=== PATIENT | female | born 1960 | race Caucasian/White ===

== ENCOUNTER 2019-10-04 02:45 | Emergency (ER) | payer OTHER, SELFPAY ==
[2019-10-04] VITALS (7 sets, daily range): BP systolic 112–142; BP diastolic 60–83; PULSE 60–66; RESP 16–33; TEMP 36.1; O2SAT 96–99
--- NOTE | 2019-10-04 02:50 | ED.GENADULT ---
HPI - General Adult General Chief complaint: Syncope Stated complaint: Syncope Time Seen by Provider: 10/04/19 02:48 Source: patient and EMS Mode of arrival: EMS Limitations: no limitations History of Present Illness HPI narrative: Patient is a 59-year-old female. No reported prior medical history. Here for evaluation of chest discomfort and a syncopal episode. Patient states that last evening at approximately 1030 after she laid down to go to bed she developed left-sided chest pressure. She states that it was not painful but she was fairly uncomfortable and could not sleep. She states she got up several times to go use the restroom and walked around the boat that [place] was [place] without any relief of the discomfort. States she woke her . They were having discussions about whether not to return home because of the discomfort. She states that she felt like she had to use the restroom and so as she was sitting on the toilet she stated that she became lightheaded. Then had what appeared to be a syncopal episode. She stated that after the syncopal episode her chest discomfort resolved. She currently has no new symptoms. She was given aspirin by EMS prior to arrival. Pre-hospital EKG shows no ST changes. Review of Systems Constitutional Constitutional: Denies fever(s) and Denies headache(s) ENT Ears, Nose, Mouth, and Throat: Denies vertigo, Denies dizziness and Denies headache(s) Cardiovascular Cardiovascular: Reports chest pain, Reports syncope and Denies dyspnea on exertion Respiratory Respiratory: Denies cough and Denies dyspnea on exertion Gastrointestinal Gastrointestinal: Denies abdominal pain, Denies change in bowel habits, Denies nausea and Denies vomiting Genitourinary Genitourinary: Denies dysuria Genitourinary: Denies dysuria Musculoskeletal Musculoskeletal: Denies arthralgias and Denies myalgias Integumentary/Breasts Skin/Breast: Denies lesions and Denies rash Neurologic Neurologic: Denies confusion, Denies vertigo, Denies dizziness, Reports syncope and Denies headache(s) Psychiatric Psychiatric: Denies confusion Hematologic/Lymphatic Hematologic/Lymphatic: Denies easy bleeding and Denies easy bruising Patient History Medical History Pneumothorax on right (Acute) Social History lives independently: Yes Exam Initial Vital Signs Initial Vital Signs: Vital Signs Temperature 97 F L 10/04/19 03:07 Pulse Rate 60 10/04/19 03:07 Respiratory Rate 16 10/04/19 03:07 Blood Pressure 142/83 H 10/04/19 03:07 Pulse Oximetry 98 10/04/19 03:07 Const General: cooperative and comfortable Limitations: mental status not altered HENMT Head: normal to inspection and normocephalic Chest Chest: No crepitus and No tenderness Resp Effort & Inspection: normal respiratory effort Auscultation: clear to auscultation bilaterally Cardio Rate: regular rate Rhythm: regular rhythm GI Inspection: non-distended Palpation: soft Skin Lesions: no lesions Rashes: no rashes Neuro General: patient alert and patient awake Cognition: normal cognition Speech: speech normal Extrem General: normal to inspection and capillary refill normal Psych Appearance: grossly normal and well kempt Scores GCS [place] coma scale eye opening: Spontaneous [place] coma scale verbal response: Orientated [place] coma scale motor response: Obey commands [place] coma scale total score: 15 HEART Score Heart Score history: Slightly Suspicious Heart Score EKG: Normal Heart Score Age: 45-64 years old Heart Score risk factors: No known risk factors Heart Score troponin: < or = to normal limit Heart Score Total: 1 Course Orders Ordered: ED Orders 10/04/19 02:48 EKG-12 Lead Stat 10/04/19 02:51 XR chest 1V Stat 10/04/19 03:00 Complete Blood Count AUTO DIFF Stat Comprehensive Metabolic Panel Stat Partial Thromboplastin Time Stat Prothrombin Time INR Stat Troponin I Stat 10/04/19 05:02 Troponin I Stat Vital Signs Vital signs: Vital Signs - 8 hr 10/04/19 03:07 10/04/19 03:10 10/04/19 03:30 Temperature 97 F L Pulse Rate 60 60 62 Respiratory Rate 16 24 23 Blood Pressure 142/83 H 121/65 Pulse Oximetry 98 99 99 10/04/19 04:00 10/04/19 04:30 10/04/19 05:00 Temperature Pulse Rate 66 62 62 Respiratory Rate 24 33 H 28 H Blood Pressure 112/60 118/65 114/62 Pulse Oximetry 99 97 96 10/04/19 05:30 Temperature Pulse Rate 66 Respiratory Rate 28 H Blood Pressure 123/71 Pulse Oximetry 97 Medical Decision Making Lab Data Lab results reviewed: Yes I reviewed the patient's lab results. Result diagrams: 10/04/19 03:00 10/04/19 03:00 Labs: Lab Results 10/04/19 10/04/19 10/04/19 Range/Units 03:00 03:00 03:00 WBC 8.0 (4.5-11.0) X10^3/uL RBC 4.19 (4.0-5.2) X10^6/uL Hgb 13.2 (12.0-16.0) g/dL Hct 39.4 (36-46) % MCV 94.1 (80-100) fL MCH 31.4 (26-34) PG MCHC 33.4 (30-36) % RDW 12.2 (11.6-14.8) % Plt Count 151 (150-400) X10^3/uL Neut % (Auto) 73.5 (50-75) % Lymph % (Auto) 17.6 L (25-40) % [place] % (Auto) 5.7 (3-14) % Eos % (Auto) 2.5 (2-4) % Baso % (Auto) 0.7 (0-2) % Neut # (Auto) 5900 (7830-9528) /uL Lymph # (Auto) 1400 (9837-1929) /uL [place] # (Auto) 500 (0-900) /uL Eos # (Auto) 200 (0-450) /uL Baso # (Auto) 100 (0-100) /uL PT 12.2 (10.1-12.7) SECONDS INR 1.1 (0.9-1.3) APTT 26 L (26.4-36.2) SECONDS Sodium 137 (137-145) mmol/L Potassium 4.1 (3.4-5.1) mmol/L Chloride 104 (98-107) mmol/L Carbon Dioxide 27 (22-32) mmol/L BUN 28 H (7-17) mg/dL Creatinine 0.84 (0.52-1.04) mg/dL Estimated GFR > 60.0 (>60) mL/min BUN/Creatinine Ratio 33.3 H (6-22) Glucose 131 H (80-110) mg/dL Calcium 8.8 (8.4-10.2) mg/dL Total Bilirubin 0.4 (0.2-1.3) mg/dL AST 30 (14-36) IU/L ALT 21 (<35) IU/L Alkaline Phosphatase 58 (38-126) U/L Troponin I < 0.012 (0.01-0.034) ng/mL Total Protein 6.7 (6.3-8.2) g/dL Albumin 4.1 (3.5-5.0) g/dL Globulin 2.6 (1.7-4.1) g/dL Albumin/Globulin Ratio 1.6 (1.0-2.8) 10/04/19 Range/Units 05:02 WBC (4.5-11.0) X10^3/uL RBC (4.0-5.2) X10^6/uL Hgb (12.0-16.0) g/dL Hct (36-46) % MCV (80-100) fL MCH (26-34) PG MCHC (30-36) % RDW (11.6-14.8) % Plt Count (150-400) X10^3/uL Neut % (Auto) (50-75) % Lymph % (Auto) (25-40) % [place] % (Auto) (3-14) % Eos % (Auto) (2-4) % Baso % (Auto) (0-2) % Neut # (Auto) (4614-9348) /uL Lymph # (Auto) (5166-9239) /uL [place] # (Auto) (0-900) /uL Eos # (Auto) (0-450) /uL Baso # (Auto) (0-100) /uL PT (10.1-12.7) SECONDS INR (0.9-1.3) APTT (26.4-36.2) SECONDS Sodium (137-145) mmol/L Potassium (3.4-5.1) mmol/L Chloride (98-107) mmol/L Carbon Dioxide (22-32) mmol/L BUN (7-17) mg/dL Creatinine (0.52-1.04) mg/dL Estimated GFR (>60) mL/min BUN/Creatinine Ratio (6-22) Glucose (80-110) mg/dL Calcium (8.4-10.2) mg/dL Total Bilirubin (0.2-1.3) mg/dL AST (14-36) IU/L ALT (<35) IU/L Alkaline Phosphatase (38-126) U/L Troponin I < 0.012 (0.01-0.034) ng/mL Total Protein (6.3-8.2) g/dL Albumin (3.5-5.0) g/dL Globulin (1.7-4.1) g/dL Albumin/Globulin Ratio (1.0-2.8) ECG Data Attestation: I personally reviewed and interpreted this ECG as follows: Prior ECG tracings: not available for review Interpretation: Sinus bradycardia First degree AV block p.r. interval 222 milliseconds Ventricular rate of [address] T wave changes MDM Narrative Medical decision making narrative: Patient is a low risk heart score. Low risk per the [place] syncope Rule. Feel we can hold on head CT. Has had no ectopy on the EKG. Troponins negative x2. Reports no other medical problems. Patient reports that her sister was just diagnosed with hypertrophic cardiomyopathy. She has no changes consistent with that on the EKG. I discussed all of the findings with the patient and her at bedside. We did discuss follow-up with her primary provider. I feel patient could be safely discharged home without further workup in the ER. I did discuss return precautions and follow-up instructions. She expressed understanding and agreement. Discharge Plan Departure Patient Disposition: Home Clinical Impression: Atypical chest pain Syncope Qualifiers: Syncope type: unspecified Qualified Code(s): R55 - Syncope and collapse Discharge Date/Time: 10/04/19 06:01 Instructions: DI for Syncope in Adults (Fainting), DI for Atypical Chest Pain Activity Restrictions/Additional Instructions: Recommend that you contact your primary provider to discuss further workup to include stress test, echocardiogram, Holter monitor. You have no restrictions on your activities. Return to the emergency department for any new or worsening symptoms
--- NOTE | 2019-10-04 02:51 | DI.RAD.S_ITS ---
PROCEDURE: XR CHEST 1V INDICATIONS: Chest pain TECHNIQUE: One view of the chest was acquired. COMPARISON: None. FINDINGS: Surgical changes and devices: None. Lungs and pleura: Lungs are clear. No pleural effusions or pneumothorax. Mediastinum: Mediastinal contours appear normal. Heart size is normal. Bones and chest wall: No suspicious bony lesions. Overlying soft tissues appear unremarkable. IMPRESSION: No evidence acute pulmonary process. Dictated by: Joshua Santos M.D. on 10/04/2019 at 7:18 Approved by: Joshua Santos M.D. on 10/04/2019 at 7:19
[2019-10-04 03:06] LABS: Add Manual Diff / Slide Review NO; Basophils Absolute Auto 100 /uL (0-100); Basophils Percent Auto 0.7 % (0-2); Eosinophils Absolute Auto 200 /uL (0-450); Eosinophils Percent Auto 2.5 % (2-4); Hematocrit 39.4 % (36-46); Hemoglobin 13.2 g/dL (12.0-16.0); Lymphocytes Absolute Auto 1400 /uL (1100-4500); Lymphocytes Percent Auto 17.6 % (25-40); Mean Corpuscular HGB Conc 33.4 % (30-36); Mean Corpuscular Hemoglobin 31.4 PG (26-34); Mean Corpuscular Volume 94.1 fL (80-100); Monocytes Absolute Auto 500 /uL (0-900); Monocytes Percent Auto 5.7 % (3-14); Neutrophils Absolute Auto 5900 /uL (1500-7000); Neutrophils Percent Auto 73.5 % (50-75); Platelet Count 151 X10^3/uL (150-400); Red Blood Cell Count 4.19 X10^6/uL (4.0-5.2); Red Cell Distribution Width 12.2 % (11.6-14.8)
[2019-10-04 03:10] LABS: INR 1.1 (0.9-1.3); Prothrombin Time 12.2 SECONDS (10.1-12.7)
[2019-10-04 03:12] LABS: PTT Partial Thromboplastin Tim 26 SECONDS (26.4-36.2)
--- NOTE | 2019-10-04 03:13 | PC.NURSE ---
[place] [facility] [place]. states had nausea and chest discomfort. got up to go to bathroom states she felt like she had to vomit or have diarrhea. sycopized at that time for a few seconds before calling her . states she does not drink ETOH and had enough fluids today to not be dehydrated. very healthy with no PMH/no meds. denies pain at this time. states after her syncopal episode her pain completely subsided. 324mg ASA given by EMS
[2019-10-04 03:15] LABS: Alanine Aminotransferase 21 IU/L (<35); Albumin 4.1 g/dL (3.5-5.0); Albumin Globulin Ratio 1.6 (1.0-2.8); Alkaline Phosphatase 58 U/L (38-126); Aspartate Aminotransferase 30 IU/L (14-36); BUN Creatinine Ratio 33.3 (6-22); Bilirubin Total 0.4 mg/dL (0.2-1.3); Blood Urea Nitrogen 28 mg/dL (7-17); Calcium 8.8 mg/dL (8.4-10.2); Carbon Dioxide 27 mmol/L (22-32); Chloride 104 mmol/L (98-107); Estimated Glomerular Filt Rate > 60.0 mL/min (>60); Globulin 2.6 g/dL (1.7-4.1); Glucose 131 mg/dL (80-110); HEMOLYSIS 39 (0-50); Potassium 4.1 mmol/L (3.4-5.1); Sodium 137 mmol/L (137-145); Total Protein 6.7 g/dL (6.3-8.2)
[2019-10-04 03:26] LABS: Troponin I < 0.012 ng/mL (0.01-0.034)
[2019-10-04 05:34] LABS: Troponin I < 0.012 ng/mL (0.01-0.034)
== END 2019-10-04 06:01 | disposition home or self-care (01) ==
PROVIDERS: Emergency Provider Emergency Medicine
DX: R07.89 Other chest pain (principal); R55 Syncope and collapse
CPT/HCPCS: 71045; 80053; 84484; 85025; 85610; 85730; 93005; 93010; 99283; 99284